=== PATIENT | male | born 1945 | race Caucasian/White ===

== ENCOUNTER → 2017-09-02 | Outpatient (CLI) | payer MEDICARE, BC ==
--- NOTE | 2017-09-02 23:03 | US ---
EXAMINATION TYPE: US thyroid st tissue head/neck DATE OF EXAM: 09/02/2017 COMPARISON: None CLINICAL HISTORY: 72-year-old male E04.1 Thyroid nodule; taking thyroid medication > 10 years TECHNIQUE: Multiple sonographic images of the thyroid gland are obtained. FINDINGS: Right Lobe: 3.4 x 0.9 x 0.9 cm Overall Parenchyma: heterogenous Left Lobe: 3.4 x 1.2 x 1.1 cm Overall Parenchyma: heterogeneous Isthmus Thickness: 0.4 cm NODULES RIGHT: # of nodules measured on right: 1 1. 0.2 X 0.2 x 0.2 cm tiny cyst at the midpole. This nodule is wide as is tall and shows no intrano dular vascularity. LEFT: # of nodules measured on left: 2 1. 1.2 X 1.0 x 0.9 cm isoechoic solid nodule at the upper pole with well-defined margins. This nod ule is wider than tall and shows intranodular vascularity. 2. 0.9 X 0.7 x 0.6 cm isoechoic solid nodule at the lower pole with well-defined margins. This nodu le is wider than tall and shows intranodular vascularity. ISTHMUS: # of nodules measured in the isthmus: 0 Bilateral neck scanned, no evidence of lymphadenopathy. IMPRESSION: 2 dominant solid nodules in the left lobe measuring 1.2 and 0.9 cm. FNA can be considered of the larg er nodule located in the upper pole.
== END | disposition home or self-care (01) ==
LOC: RADUSWWP 15:47
PROVIDERS: ATTEND Family Medicine
DX: E04.2 Nontoxic multinodular goiter (principal)
CPT/HCPCS: 76536

== ENCOUNTER 2018-02-12 08:53 | Day surgery (SDC) | payer MEDICARE, BC ==
[2018-02-07 14:07] VITALS: BMI 28.7
[~2018-02-12 08:53] MED LIST: LACTATED RINGERS 1,000 ML IV SCH
[2018-02-12 09:57] VITALS: RESP 16; TEMP 97.8
[2018-02-12] MEDS ORDERED: LIDOCAINE 1% 20 ML VIAL (10MG/ML) FOR IV START INTRADERMA ONE (09:57)
[2018-02-12 10:01] LABS: Glucose,Whole Blood 102 mg/dL (75-99)
--- NOTE | 2018-02-12 10:07 | P.GSHP ---
History of Present Illness H&P Date: 02/12/18 Chief Complaint: Screening colonoscopy This a 72-year-old male referred from Dr. Marisa Chaney. Patient rents today for screening colonoscopy. He denies a significant GI complaints. Past Medical History Past Medical History: Cancer, Diabetes Mellitus, GERD/Reflux, Hyperlipidemia, Hypertension, Osteoarthritis (OA), Thyroid Disorder Additional Past Medical History / Comment(s): inflammation lower spine, hx skin cancer, nodules in lungs History of Any Multi-Drug Resistant Organisms: None Reported Past Surgical History: Orthopedic Surgery Additional Past Surgical History / Comment(s): skin cancer removed from back, left carpal tunnel, Past Anesthesia/Blood Transfusion Reactions: No Reported Reaction Smoking Status: Never smoker - Past Family History Sister(s) Family Medical History: Cancer Medications and Allergies Home Medications Medication Instructions Recorded Confirmed Type Aspirin 325 mg PO DAILY PRN 02/07/18 02/12/18 History Levothyroxine Sodium [Synthroid] 88 mcg PO DAILY 02/07/18 02/12/18 History Lisinopril [Prinivil] 10 mg PO QAM 02/07/18 02/12/18 History Naproxen Sodium [Aleve] 220 mg PO Q12HR PRN 02/07/18 02/12/18 History Pioglitazone [Actos] 30 mg PO DAILY PRN 02/07/18 02/12/18 History Rosuvastatin [Crestor] 10 mg PO HS 02/07/18 02/12/18 History Ubidecarenone [Co Q-10] 200 mg PO HS 02/07/18 02/12/18 History metFORMIN HCL [Glucophage] 500 mg PO BID 02/07/18 02/12/18 History Allergies Allergy/AdvReac Type Severity Reaction Status Date / Time No Known Allergies Allergy Verified 02/07/18 13:56 Surgical - Exam Vital Signs Temp Pulse Resp BP Pulse Ox 97.8 F 82 16 165/80 98 02/12/18 09:54 02/12/18 09:54 02/12/18 09:54 02/12/18 09:54 02/12/18 09:54 - General well developed, no distress - Eyes PERRL - ENT normal pinna - Neck no masses - Respiratory normal expansion - Cardiovascular Rhythm: regular - Abdomen Abdomen: soft, non tender Results - Labs Abnormal Lab Results - Last 24 Hours (Table) 02/12/18 Range/Units 09:58 POC Glucose (mg/dL) 102 H (75-99) mg/dL Assessment and Plan Assessment: We'll perform screening colonoscopy.
[2018-02-12] MEDS ORDERED: PROPOFOL 10 MG/ML 20 ML VIAL IV ONE (10:10)
--- NOTE | 2018-02-12 10:31 | P.OP ---
Date of Procedure: 02/12/18 Preoperative Diagnosis: Screening colonoscopy Postoperative Diagnosis: Diverticulosis Internal hemorrhoids Procedure(s) Performed: Colonoscopy Anesthesia: MAC Surgeon: Troy Parks Pathology: none sent Condition: stable Disposition: PACU Description of Procedure: The patient's placed on the endoscopy table lateral position. He received IV sedation. Digital rectal exam was performed which revealed internal hemorrhoids. The prostate was symmetric without nodules. The flexible colonoscope was then placed patient anus passed throughout the entire colon. The ileocecal valve was visualized. The cecum, ascending and transverse colon appeared normal. In the descending; was a few scattered diverticuli. Scope was then brought back the rectum and this appeared normal. Scope was withdrawn through the anus and internal hemorrhoids are noted. Scope was withdrawn from patient.
[2018-02-12 10:42] LABS: Glucose,Whole Blood 118 mg/dL (75-99)
[2018-02-12 10:52] VITALS: PULSE 60
[2018-02-12 11:03] VITALS: BP 162/90
== END 2018-02-12 11:16 | disposition home or self-care (01) ==
LOC: ORWHC2ENDO 08:53
PROVIDERS: ATTEND Surgery
DX: Z12.11 Encounter for screening for malignant neoplasm of colon (principal); K57.30 Diverticulosis of large intestine without perforation or abscess without bleeding; K64.8 Other hemorrhoids; E11.9 Type 2 diabetes mellitus without complications; K21.9 Gastro-esophageal reflux disease without esophagitis; I10 Essential (primary) hypertension; E78.5 Hyperlipidemia, unspecified; M19.90 Unspecified osteoarthritis, unspecified site; E07.9 Disorder of thyroid, unspecified; Z85.828 Personal history of other malignant neoplasm of skin; Z79.84 Long term (current) use of oral hypoglycemic drugs; Z79.890 Hormone replacement therapy; Z79.899 Other long term (current) drug therapy
CPT/HCPCS: J2704; G0121; 45378

== ENCOUNTER → 2020-09-02 | Outpatient (CLI) | payer MEDICARE, BC ==
--- NOTE | 2020-09-04 10:00 | ECHOF ---
Referral Reason:R06.09 Dyspnea on exertion MEASUREMENTS -------- HEIGHT: 180.3 cm WEIGHT: 90.7 kg BP: RVIDd: 2.3 cm (< 3.3) IVSd: 1.3 cm (0.6 - 1.1) LVIDd: 3.6 cm (3.9 - 5.3) LVPWd: 1.2 cm (0.6 - 1.1) IVSs: 1.6 cm LVIDs: 1.4 cm LVPWs: 1.6 cm LAESV Index (A-L): 18.53 ml/m Ao Diam: 3.4 cm (2.0 - 3.7) AV Cusp: 2.1 cm (1.5 - 2.6) LA Diam: 4.0 cm (2.7 - 3.8) MV EXCURSION: 12.842 mm (> 18.000) MV EF SLOPE: 73 mm/s (70 - 150) EPSS: 0.8 cm MV E Jamshid: 0.80 m/s MV DecT: 197 ms MV A Jamshid: 0.97 m/s MV E/A Ratio: 0.83 AR PHT: 602 ms RAP: 5.00 mmHg RVSP: 11.16 mmHg FINDINGS -------- This was a technically adequate study. The left ventricular size is normal. There is mild concentric left ventricular hypertrophy. Overa ll left ventricular systolic function is normal with, an EF between 60 - 65 %. The diastolic fillin g pattern is normal for the age of the patient 11.89. The right ventricle is normal in size. The left atrial size is normal. Normal LA size by volume 22+/-6 ml/m2. The right atrial size is normal. Aortic valve is trileaflet and is mildly thickened. Trace amount of aortic regurgitation. The mitral valve is normal. Mild mitral regurgitation is present. The tricuspid valve appears structurally normal. Mild tricuspid regurgitation present. Right vent ricular systolic pressure is normal at < 35 mmHg. There is no pulmonic regurgitation present. The aortic root size is normal. Normal inferior vena cava with normal inspiratory collapse consistent with estimated right atrial pre ssure of 5 mmHg. There is no pericardial effusion. CONCLUSIONS -------- 1. The left ventricular size is normal. 2. There is mild concentric left ventricular hypertrophy. 3. Overall left ventricular systolic function is normal with, an EF between 60 - 65 %. 4. The diastolic filling pattern is normal for the age of the patient 11.89 5. Aortic valve is trileaflet and is mildly thickened. 6. Trace amount of aortic regurgitation. 7. Mild mitral regurgitation is present. 8. Mild tricuspid regurgitation present. 9. There is no pericardial effusion. NUCLEAR PHYSICS TEACHER: Kenzie Mortensen RDCS
== END | disposition home or self-care (01) ==
LOC: RADECHMAIN 13:48
PROVIDERS: ATTEND Internal Medicine Critical Care Medicine
DX: I08.1 Rheumatic disorders of both mitral and tricuspid valves (principal)
CPT/HCPCS: 93306

== ENCOUNTER → 2022-07-03 | Outpatient (CLI) | payer MEDICARE, BC ==
--- NOTE | 2022-07-04 20:48 | MR ---
EXAMINATION TYPE: MR Prostate wo/w con DATE OF EXAM: 07/03/2022 9:41 AM COMPARISON: None. CLINICAL INDICATION:Male, 77 years old with history of R97.20 ELEVATED PROSTATE SPECIFIC ANTIGEN; TECHNIQUE: Multi-planar, multi-sequence imaging of the pelvis is performed prior to and following the uncomplicated administration of bolus intravenous gadolinium. CONTRAST: 9 Gadavist Interpretive Criteria: PI-RADS v2.1 SERUM PSA: 8.4 on 05/29/2022 7.5 on 01/31/2022 SURGICAL PATHOLOGY: No data available. FINDINGS: Prostatic dimensions: 5.3 x 5.5 x 3.2 cm. "Bullet" Volume:61.05 (PSA density=0.14 ng/mL/mL) CENTRAL GLAND (Central and Transition Zones/CZ+TZ): Multiple bilateral, heterogenous appearing hypertrophic stromal nodules, without suspicious lesion. M edian lobe hypertrophy with protrusion into the base of the bladder. (PI-RADS 2) PERIPHERAL ZONE (PZ): Right anterior laterally peripheral gland mid gland/apex measuring 2.4 x 5 mm high DWI and low ADC s ignal . This extends along the capsule extending from 9-12 o'clock (PI-RADS 5) Right peripheral gland apex measuring 7 mm with high DWI and low ADC signal (PI-RADS 4) SEMINAL VESICLES (SV): Diffusely collapse or atrophic, bilaterally. PERIPROSTATIC TISSUES: Unremarkable. LYMPH NODES: No enlarged pelvic lymph node. REMAINING PELVIS: Bladder wall is within normal limits given distention. No abnormal free or organized intrapelvic fluid collection. No pathologic bowel dilation or mural thickening. OSSEOUS STRUCTURES: No suspicious osseous abnormality. IMPRESSION: 1. Right peripheral gland the mid gland and apex measuring 2.4 x 5 mm. (PI-RADS 5) 2. Right peripheral gland apex posterior lateral apex measuring 7 mm. (PI-RADS 4) 3. Moderate BPH, estimated gland volume 61 mL. 4. No suspicious osseous lesion. No lymphadenopathy.
== END | disposition home or self-care (01) ==
LOC: RADMRIMAIN 08:43
PROVIDERS: ATTEND Urology
DX: N40.0 Benign prostatic hyperplasia without lower urinary tract symptoms (principal); R97.20 Elevated prostate specific antigen [PSA]
CPT/HCPCS: 72197; A9585

== ENCOUNTER 2022-08-03 17:19 | Emergency (ER) | payer MEDICARE, BC ==
[2022-08-03 17:26] VITALS: TEMP 98.2
--- NOTE | 2022-08-03 17:50 | ED ---
General Adult HPI - General Chief complaint: Weakness Stated complaint: Weakness Time Seen by Provider: 08/03/22 17:36 Source: patient Mode of arrival: ambulatory Limitations: no limitations - History of Present Illness Initial comments: Dictation was produced using [employer] dictation software. please excuse any grammatical, word or spelling errors. Chief Complaint: 77-year-old male past medical history of diabetes and thyroid disease presents to the emergency room for episode of dizziness and diaphoresis History of Present Illness: 77-year-old male he woke up in the middle the night 2 nights ago. He woke up feeling a little dizzy. Shortly after he had some diaphoresis. Says short-lived lasted only for approximately 1 minute. Since that he's been feeling mildly fatigued more than usual. A phone conversation with his primary care physician's office and was told to come to the emergency room. At the bedside patient states that he feels slightly fatigued but has no other complaints. Denies any cardiac history. No chest pain. No syncope. No diarrhea. No urinary symptoms. The ROS documented in this emergency department record has been reviewed and confirmed by me. Those systems with pertinent positive or negative responses have been documented in the HPI. All other systems are other negative and/or noncontributory. PHYSICAL EXAM: General Impression: Alert and oriented x3, not in acute distress HEENT: Normocephalic atraumatic, extra-ocular movements intact, pupils equal and reactive to light bilaterally, mucous membranes moist. Cardiovascular: Heart regular rate and rhythm Chest: Able to complete full sentences, no retractions, no tachypnea Abdomen: abdomen soft, non-tender, non-distended, no organomegaly Musculoskeletal: Pulses present and equal in all extremities, no peripheral edema Motor: no focal deficits noted Neurological: CN II-XII grossly intact, no focal motor or sensory deficits noted Skin: Intact with no visualized rashes Psych: Normal affect and mood ED course: 77-year-old well-appearing male presents emergency department for episode of dizziness and diaphoresis 2 nights ago. Vital signs upon arrival are within acceptable limits. Nursing notes and chart review was performed EKG interpreted by me: Ventricular rate 79, sinus rhythm,. 195, QRS 95, QTC 370. No WA prolongation, no QTC prolongation, no ST or T-wave changes noted. Overall, this EKG is unremarkable Laboratory evaluation obtained. CBC, metabolic panel, labs are negative. For panel are a PCR is negative. Patient observed in emergency department for 2 hours and 10 minutes. Reevaluated at 7:30 PM on a stable medical condition. Patient is a symptomatically feels at baseline. Patient has no high-risk features. Patient discharged advised follow-up with primary care doctor. Was pt. sent in by a medical professional or institution (, PA, FUNERAL PLANNING COUNSELOR, urgent care, hospital, or correction...) When possible be specific @ -No Did you speak to anyone other than the patient for history (EMS, parent, family, police, friend...)? What history was obtained from this source @ -No Did you review nursing and triage notes (agree or disagree)? Why? @ -I reviewed and agree with nursing and triage notes Were old charts reviewed (outside hosp., previous admission, EMS record, old EKG, old radiological studies, urgent care reports/EKG's, correction records)? Report findings @ -No old charts were reviewed Differential Diagnosis (chest pain, altered mental status, abdominal pain women, abdominal pain men, vaginal bleeding, weakness, fever, dyspnea, syncope, headache, dizziness, GI bleed, back pain, seizure, CVA, palpatations, mental health)? @ -Differential Dizziness: Benign paroxysmal positional Vertigo, Menieres disease, otitis media, acoustic neuroma, vertebrobasilar insufficiency, cerebellar stroke, encephalitis, hypovolemic, arrhythmia, coronary artery syndrome, anemia, this is not meant to be an all-inclusive list EKG interpreted by me (3pts min.). @ -As above X-rays interpreted by me (1pt min.). @ -None done CT interpreted by me (1pt min.). @ -None done U/S interpreted by me (1pt. min.). @ -None done What testing was considered but not performed or refused? (CT, X-rays, U/S, labs)? Why? @ -See above What meds were considered but not given or refused? Why? @ -See above Did you discuss the management of the patient with other professionals (professionals i.e. , ADRIANNE, FUNERAL PLANNING COUNSELOR, lab, RT, psych nurse, sexual assault social worker, inseminator, teacher, chief innovation officer, nurse case manager)? Give summary @ -See above Was smoking cessation discussed for >3mins.? @ -No Was critical care preformed (if so, how long)? @ -No Were there social determinants of health that impacted care today? How? (Homelessness, low income, unemployed, alcoholism, drug addiction, transportation, low edu. Level, literacy, decrease access to med. care, custodial, rehab)? @ -No Was there de-escalation of care discussed even if they declined (Discuss DNR or withdrawal of care, Hospice)? DNR status @ -No What co-morbidities impacted this encounter? (DM, HTN, Smoking, COPD, CAD, Cancer, CVA, ARF, Chemo, Hep., AIDS, mental health diagnosis, sleep apnea, morbid obesity)? @ -None Was patient admitted / discharged? Hospital course, mention meds given and rou te, prescriptions, significant lab abnormalities, going to OR and other pertinent info. @ -See above Undiagnosed new problem with uncertain prognosis? @ -No Drug Therapy requiring intensive monitoring for toxicity (Heparin, Nitro, Insulin, Cardizem)? @ -No Were any procedures done? @ -No Diagnosis/symptom? @ -Acute episode of dizziness and diaphoresis, no obvious source Acute, or Chronic, or Acute on Chronic? @ -Acute Uncomplicated (without systemic symptoms) or Complicated (systemic symptoms)? @ -Uncomplicated Side effects of treatment? @ -No Exacerbation, Progression, or Severe Exacerbation? @ -No Poses a threat to life or bodily function? How? (Chest pain, [place], [place], pneumonia, PE, COPD, DKA, ARF, appy, cholecystitis, CVA, Diverticulitis, Homicidal, Suicidal, threat to staff... and all critical care pts) @ -No - Related Data Home Medications Medication Instructions Recorded Confirmed Aspirin 325 mg PO DAILY PRN 02/07/18 02/12/18 Levothyroxine Sodium [Synthroid] 88 mcg PO DAILY 02/07/18 02/12/18 Naproxen Sodium [Aleve] 220 mg PO Q12HR PRN 02/07/18 02/12/18 Pioglitazone [Actos] 30 mg PO DAILY PRN 02/07/18 02/12/18 Rosuvastatin [Crestor] 10 mg PO HS 02/07/18 02/12/18 Ubidecarenone [Co Q-10] 200 mg PO HS 07/27/18 08/01/18 lisinopriL [Prinivil] 10 mg PO QAM 02/07/18 02/12/18 metFORMIN HCL [Glucophage] 500 mg PO BID 02/07/18 02/12/18 Allergies Allergy/AdvReac Type Severity Reaction Status Date / Time No Known Allergies Allergy Verified 08/03/22 17:26 Review of Systems ROS Statement: Those systems with pertinent positive or pertinent negative responses have been documented in the HPI. ROS Other: All systems not noted in ROS Statement are negative. Past Medical History Past Medical History: Cancer, Diabetes Mellitus, GERD/Reflux, Hyperlipidemia, Hypertension, Osteoarthritis (OA), Thyroid Disorder Additional Past Medical History / Comment(s): inflammation lower spine, hx skin cancer, nodules in lungs History of Any Multi-Drug Resistant Organisms: None Reported Past Surgical History: Orthopedic Surgery Additional Past Surgical History / Comment(s): skin cancer removed from back, left carpal tunnel, Past Anesthesia/Blood Transfusion Reactions: No Reported Reaction Past Psychological History: No Psychological Hx Reported Smoking Status: Never smoker Past Alcohol Use History: Occasional Past Drug Use History: None Reported - Past Family History Sister(s) Family Medical History: Cancer General Exam Limitations: no limitations Course Vital Signs 08/03/22 17:24 Temperature 98.2 F Pulse Rate 83 Respiratory 20 Rate Blood Pressure 135/85 O2 Sat by Pulse 98 Oximetry Medical Decision Making - Lab Data Result diagrams: 08/03/22 17:58 08/03/22 17:58 Lab Results 08/03/22 08/03/22 08/03/22 Range/Units 17:58 17:58 17:58 WBC 7.0 (3.8-10.6) k/uL RBC 5.03 (4.30-5.90) m/uL Hgb 15.3 (13.0-17.5) gm/dL Hct 45.5 (39.0-53.0) % MCV 90.4 (80.0-100.0) fL MCH 30.4 (25.0-35.0) pg MCHC 33.7 (31.0-37.0) g/dL RDW 12.6 (11.5-15.5) % Plt Count 226 (150-450) k/uL MPV 8.0 Neutrophils % 58 % Lymphocytes % 22 % Monocytes % 6 % Eosinophils % 11 % Basophils % 1 % Neutrophils # 4.1 (1.3-7.7) k/uL Lymphocytes # 1.5 (1.0-4.8) k/uL Monocytes # 0.4 (0-1.0) k/uL Eosinophils # 0.7 (0-0.7) k/uL Basophils # 0.1 (0-0.2) k/uL Sodium 136 L (137-145) mmol/L Potassium 4.3 (3.5-5.1) mmol/L Chloride 103 (98-107) mmol/L Carbon Dioxide 26 (22-30) mmol/L Anion Gap 7 mmol/L BUN 14 (9-20) mg/dL Creatinine 0.96 (0.66-1.25) mg/dL Est GFR (CKD-EPI)AfAm 88 (>60 ml/min/1.73 sqM) Est GFR (CKD-EPI)NonAf 77 (>60 ml/min/1.73 sqM) Glucose 124 H (74-99) mg/dL Calcium 9.3 (8.4-10.2) mg/dL Magnesium 1.6 (1.6-2.3) mg/dL Total Bilirubin 0.7 (0.2-1.3) mg/dL AST 24 (17-59) U/L ALT 21 (4-49) U/L Alkaline Phosphatase 61 (38-126) U/L Troponin I (0.000-0.034) ng/mL Total Protein 6.3 (6.3-8.2) g/dL Albumin 4.0 (3.5-5.0) g/dL TSH 3.000 (0.465-4.680) mIU/L Influenza Type A (PCR) Not Detected (Not Detectd) Influenza Type B (PCR) Not Detected (Not Detectd) RSV (PCR) Not Detected (Not Detectd) SARS-CoV-2 (PCR) Not Detected (Not Detectd) 08/03/22 Range/Units 17:58 WBC (3.8-10.6) k/uL RBC (4.30-5.90) m/uL Hgb (13.0-17.5) gm/dL Hct (39.0-53.0) % MCV (80.0-100.0) fL MCH (25.0-35.0) pg MCHC (31.0-37.0) g/dL RDW (11.5-15.5) % Plt Count (150-450) k/uL MPV Neutrophils % % Lymphocytes % % Monocytes % % Eosinophils % % Basophils % % Neutrophils # (1.3-7.7) k/uL Lymphocytes # (1.0-4.8) k/uL Monocytes # (0-1.0) k/uL Eosinophils # (0-0.7) k/uL Basophils # (0-0.2) k/uL Sodium (137-145) mmol/L Potassium (3.5-5.1) mmol/L Chloride (98-107) mmol/L Carbon Dioxide (22-30) mmol/L Anion Gap mmol/L BUN (9-20) mg/dL Creatinine (0.66-1.25) mg/dL Est GFR (CKD-EPI)AfAm (>60 ml/min/1.73 sqM) Est GFR (CKD-EPI)NonAf (>60 ml/min/1.73 sqM) Glucose (74-99) mg/dL Calcium (8.4-10.2) mg/dL Magnesium (1.6-2.3) mg/dL Total Bilirubin (0.2-1.3) mg/dL AST (17-59) U/L ALT (4-49) U/L Alkaline Phosphatase (38-126) U/L Troponin I <0.012 (0.000-0.034) ng/mL Total Protein (6.3-8.2) g/dL Albumin (3.5-5.0) g/dL TSH (0.465-4.680) mIU/L Influenza Type A (PCR) (Not Detectd) Influenza Type B (PCR) (Not Detectd) RSV (PCR) (Not Detectd) SARS-CoV-2 (PCR) (Not Detectd) Disposition Clinical Impression: Dizziness Disposition: HOME SELF-CARE Condition: Good Instructions (If sedation given, give patient instructions): Dizziness (ED) Is patient prescribed a controlled substance at d/c from ED?: No Referrals: Marisa Chaeny DO [Primary Care Provider] - 1-2 days Time of Disposition: 19:32
[2022-08-03 18:07] LABS: Basophils # (A) 0.1 k/uL (0-0.2); Basophils % (A) 1 %; Eosinophils # (A) 0.7 k/uL (0-0.7); Eosinophils % (A) 11 %; HCT 45.5 % (39.0-53.0); HGB 15.3 gm/dL (13.0-17.5); Lymphocytes # (A) 1.5 k/uL (1.0-4.8); Lymphocytes % (A) 22 %; MCH 30.4 pg (25.0-35.0); MCHC 33.7 g/dL (31.0-37.0); MCV 90.4 fL (80.0-100.0); Monocytes # (A) 0.4 k/uL (0-1.0); Monocytes % (A) 6 %; Neutrophils # (A) 4.1 k/uL (1.3-7.7); Neutrophils % (A) 58 %; Platelet Count 226 k/uL (150-450); RBC 5.03 m/uL (4.30-5.90); RDW 12.6 % (11.5-15.5)
[2022-08-03 18:18] LABS: Calcium 9.3 mg/dL (8.4-10.2); Magnesium 1.6 mg/dL (1.6-2.3); Potassium 4.3 mmol/L (3.5-5.1); Total Bilirubin 0.7 mg/dL (0.2-1.3); Total Protein 6.3 g/dL (6.3-8.2)
[2022-08-03 20:32] VITALS: BP 150/97; PULSE 72; RESP 16
== END 2022-08-03 20:25 | disposition home or self-care (01) ==
LOC: EC 17:19
DX: R42 Dizziness and giddiness (principal); E11.9 Type 2 diabetes mellitus without complications; E07.9 Disorder of thyroid, unspecified; E78.5 Hyperlipidemia, unspecified; I10 Essential (primary) hypertension; K21.9 Gastro-esophageal reflux disease without esophagitis; M19.90 Unspecified osteoarthritis, unspecified site; Z79.84 Long term (current) use of oral hypoglycemic drugs; Z79.890 Hormone replacement therapy; Z79.899 Other long term (current) drug therapy; Z20.822 Contact with and (suspected) exposure to COVID-19
CPT/HCPCS: 36415; 80053; 83735; 84443; 84484; 85025; 87636; 93005; 99285

== ENCOUNTER → 2022-09-26 | Outpatient (CLI) | payer MEDICARE, BC ==
[2022-09-26 23:27] LABS: Basophils # (A) 0.06 X 10*3/uL (0.00-0.10); Basophils % (A) 0.8 %; Eosinophils # (A) 0.09 X 10*3/uL (0.04-0.35); Eosinophils % (A) 1.2 %; HCT 47.3 % (39.6-50.0); HGB 15.3 g/dL (13.0-17.0); Immature Grans, Automated 0.5 %; Lymphocytes # (A) 1.38 X 10*3/uL (0.90-5.00); Lymphocytes % (A) 18.4 %; MCH 30.8 pg (27.0-32.0); MCHC 32.3 g/dL (32.0-37.0); MCV 95.2 fL (80.0-97.0); Mean Platelet Volume 10.4 fL (9.5-12.2); Monocytes # (A) 0.59 X 10*3/uL (0.20-1.00); Monocytes % (A) 7.9 %; NRBC Per 100 WBC 0 /100 WBCS (0.0-0.0); Neutrophils # (A) 5.34 X 10*3/uL (1.80-7.70); Neutrophils % (A) 71.2 %; Platelet Count 289 X 10*3/uL (140-440); RBC 4.97 X 10*6/uL (4.40-5.60); RDW 12.8 % (11.5-14.5)
[2022-09-26 23:31] LABS: African American GFR (CKD) 83.8 (60.0-200.0); Anion Gap 11.2 mmol/L (10.00-18.00); BUN/Creat Ratio 18.2 Ratio (12.00-20.00); Blood Urea Nitrogen 18.2 mg/dL (9.0-27.0); Calcium 9.4 mg/dL (8.7-10.3); Carbon Dioxide 25.8 mmol/L (20.0-27.5); Non-African American GFR(CKD) 72.3 (60.0-200.0); Potassium 4.7 mmol/L (3.5-5.5)
== END | disposition home or self-care (01) ==
LOC: LABWHC1 15:05
PROVIDERS: ATTEND Urology
DX: Z01.812 Encounter for preprocedural laboratory examination (principal); R97.20 Elevated prostate specific antigen [PSA]
CPT/HCPCS: 36415; 80048; 85025

== ENCOUNTER 2022-10-02 11:23 | Day surgery (SDC) | payer MEDICARE, BC ==
--- NOTE | 2022-09-28 16:14 | P.HPIHPCON ---
History of Present Illness H&P Date: 09/28/22 Chief Complaint: Elevated PSA This is a 77-year-old male with history of elevated PSA. Underwent a prostate that showed 2 suspicious lesions along right side of the prostate. Discussed given this finding the option of an MRI fusion biopsy. Discussed the risk of bleeding, infection, sepsis. Risk of false negative was also discussed with him Consent for Procedure: I have explained the operation/procedure to the patient, including the risks, b enefits, side effects, alternative therapies (including not receiving the proposed treatment or service), the likelihood of the patient achieving his/her goals, and potential recuperation problems for the procedure/sedation/analgesia, as well as any blood products, if indicated. I also explained to the patient the risks, benefits and side effects of the alternatives, as well as the risks related to not receiving the proposed procedure, care, treatment, or services. Past Medical History Past Medical History: Cancer, Diabetes Mellitus, GERD/Reflux, Hyperlipidemia, Hypertension, Osteoarthritis (OA), Thyroid Disorder Additional Past Medical History / Comment(s): inflammation lower spine, hx skin cancer, nodules in lungs History of Any Multi-Drug Resistant Organisms: None Reported Past Surgical History: Orthopedic Surgery Additional Past Surgical History / Comment(s): skin cancer removed from back, left carpal tunnel, Past Anesthesia/Blood Transfusion Reactions: No Reported Reaction Past Psychological History: No Psychological Hx Reported Smoking Status: Never smoker Past Alcohol Use History: Occasional Past Drug Use History: None Reported - Past Family History Sister(s) Family Medical History: Cancer Medications and Allergies Home Medications Medication Instructions Recorded Confirmed Type Levothyroxine Sodium [Synthroid] 88 mcg PO DAILY 02/07/18 08/03/22 History Naproxen Sodium [Aleve] 220 mg PO HS 02/07/18 08/03/22 History Rosuvastatin [Crestor] 10 mg PO HS 02/07/18 08/03/22 History Ubidecarenone [Co Q-10] 200 mg PO DAILY 02/07/18 08/03/22 History lisinopriL [Prinivil] 10 mg PO HS 02/07/18 08/03/22 History metFORMIN HCL [Glucophage] 500 mg PO BID 02/07/18 08/03/22 History Cetirizine HCl/Pseudoephedrine 1 tab PO HS 08/03/22 08/03/22 History [Zyrtec-D Tablet] Omeprazole [PriLOSEC] 20 mg PO DAILY 08/03/22 08/03/22 History Semaglutide [Rybelsus] 7 mg PO DAILY 08/03/22 08/03/22 History Allergies Allergy/AdvReac Type Severity Reaction Status Date / Time No Known Allergies Allergy Verified 08/03/22 19:31 Surgical - Exam - General no distress, no pain - Eyes normal ocular movement, no pale - ENT normal nares, normal mucosa Assessment and Plan Assessment: OR for MRI fusion biopsy
[~2022-10-02 11:23] MED LIST changes: +GENTAMICIN 120 MG in SODIUM CHLORIDE 0.9% 100 ML IVPB PRN; +HYDROmorphone 0.5 MG/0.5 ML SYRINGE IVP PRN
[2022-10-02] MEDS ORDERED: ONDANSETRON 4 MG/2 ML VIAL ONE (11:51)
[2022-10-02 12:05] VITALS: TEMP 97.2
[2022-10-02] MEDS ORDERED: KETAMINE 10 MG/ML 20 ML VIAL ONE (12:17)
[2022-10-02] MEDS ORDERED: LIDOCAINE 2% INJ 20 MG/ML (2 ML VIAL) ONE (12:17)
[2022-10-02] MEDS ORDERED: MIDAZOLAM 2 MG/2 ML VIAL ONE (12:17)
[2022-10-02] MEDS ORDERED: fentaNYL (PF) 50 MCG/ML 2 ML AMP ONE (12:17)
[2022-10-02] MEDS ORDERED: PROPOFOL 10 MG/ML 20 ML VIAL IV ONE (12:17)
[2022-10-02] MEDS ORDERED: ONDANSETRON 4 MG/2 ML VIAL IVP ONE (12:18)
[2022-10-02] MEDS ORDERED: DEXAMETHASONE SOD PHOSPHATE 4 MG/ML 1 ML VIAL IVP ONE (12:18)
[2022-10-02 12:22] LABS: Glucose,Whole Blood 125 mg/dL (70-110)
--- NOTE | 2022-10-02 12:55 | P.OP ---
Date of Procedure: 10/02/22 Preoperative Diagnosis: Elevated PSA Postoperative Diagnosis: Same Procedure(s) Performed: MRI fusion prostate biopsy Implants: none Anesthesia: MAC Surgeon: Feliz Carrington Estimated Blood Loss (ml): 1 Pathology: other (prostate biopsies) Condition: stable Disposition: PACU Indications for Procedure: This is a 77-year-old male with history of elevated PSA. Underwent a prostate that showed 2 suspicious lesions along right side of the prostate. Discussed given this finding the option of an MRI fusion biopsy. Discussed the risk of bleeding, infection, sepsis. Risk of false negative was also discussed with him Description of Procedure: The patient was taken to the operating room and placed in the left lateral decubitus position. The [employer] transrectal ultrasound probe was placed intrarectally. It was then placed within the stand of the [employer] MRI/TRUS Fusion for Prostate Biopsy system. The prostate was imaged in both the axial and sagittal planes, revealing a prostate volume of 60 mL. Using the Biopty gun, 4 biopsies were obtained from each target lesions, there were two total lesion. The remaining 12 biopsies of the peripheral zone were obtained utilizing a standard template. Once the procedure was completed, the ultrasound probe was removed. The patient tolerated the procedure well was taken to the recovery room stable condition
[2022-10-02 13:34] VITALS: BP 106/70; PULSE 73; RESP 16
== END 2022-10-02 13:49 | disposition home or self-care (01) ==
LOC: OR 11:23
PROVIDERS: ATTEND Urology
DX: R97.20 Elevated prostate specific antigen [PSA] (principal)
CPT/HCPCS: 55700; J2250; J1100; J2405; J3010; J1580; J2704; J2001; 88305

== ENCOUNTER → 2022-12-24 | Outpatient (CLI) | payer MEDICARE, BC | END | disposition home or self-care (01) | LOC: LABPAT 10:28 | PROVIDERS: ATTEND Urology | DX: Z01.812 Encounter for preprocedural laboratory examination (principal); C61 Malignant neoplasm of prostate | CPT/HCPCS: 87086 ==

== ENCOUNTER → 2023-01-01 | Day surgery (SDC) | payer MEDICARE, BC ==
[2022-12-24 12:25] LABS: Basophils % (A) 1 %; Eosinophils # (A) 0.1 k/uL (0-0.7); Eosinophils % (A) 2 %; HGB 16.4 gm/dL (13.0-17.5); Lymphocytes % (A) 21 %; MCHC 32.1 g/dL (31.0-37.0); MCV 93.5 fL (80.0-100.0); Mean Platelet Volume 8.7; Monocytes # (A) 0.3 k/uL (0-1.0); Monocytes % (A) 6 %; Neutrophils # (A) 3.2 k/uL (1.3-7.7); Neutrophils % (A) 68 %; Platelet Count 209 k/uL (150-450); RBC 5.45 m/uL (4.30-5.90); RDW 13.1 % (11.5-15.5); WBC 4.7 k/uL (3.8-10.6)
[2022-12-24 12:36] LABS: Appearance,Urine Clear (Clear); Bilirubin,Urine Negative (Negative); Blood,Urine Negative (Negative); Color,Urine Light Yellow; Glucose,Urine (UA) 4+ (Negative); Ketones,Urine Negative (Negative); Leukocyte Esterase,Urine Negative (Negative); Nitrite,Urine Negative (Negative); PH, Urine 6.5 (5.0-8.0); Protein,Urine Negative (Negative); Urobilinogen,Urine <2.0 mg/dL (<2.0)
[2022-12-24 12:38] LABS: African American GFR (CKD) >90 (>60 ml/min/1.73 sqM); Anion Gap 8 mmol/L; Blood Urea Nitrogen 12 mg/dL (9-20); Calcium 8.9 mg/dL (8.4-10.2); Carbon Dioxide 26 mmol/L (22-30); Chloride 103 mmol/L (98-107); Glucose 104 mg/dL (74-99); Non-African American GFR(CKD) 82 (>60 ml/min/1.73 sqM); Potassium 4.8 mmol/L (3.5-5.1); Sodium 137 mmol/L (137-145)
[2022-12-28 10:36] VITALS: BMI 25.8
[~2023-01-01] MED LIST changes: +DEXAMETHASONE SOD PHOSPHATE 4 MG/ML 1 ML VIAL IVP ONE; -GENTAMICIN 120 MG in SODIUM CHLORIDE 0.9% 100 ML IVPB PRN; -HYDROmorphone 0.5 MG/0.5 ML SYRINGE IVP PRN; +KETAMINE 10 MG/ML 20 ML VIAL ONE; +LIDOCAINE 2% (PF) 20 MG/ML 10 ML AMP SQ ONE; +MIDAZOLAM 2 MG/2 ML VIAL ONE; +ONDANSETRON 4 MG/2 ML VIAL ONE; +PROPOFOL 10 MG/ML 20 ML VIAL IV ONE; +fentaNYL (PF) 50 MCG/ML 2 ML AMP ONE
--- NOTE | 2023-01-01 12:40 | P.HPIHPCON ---
History of Present Illness H&P Date: 01/01/23 Chief Complaint: prostate cancer This is a 77-year-old male with history of [place] 7 prostate cancer. He agreed to proceed with radiation therapy. Option of a SpaceOR placement was discussed with him. Discussed with him risk of bleeding, infection, and the rationale of doing this. Discussed with him the purpose of to reduce the rectal toxicity. Discussed potential of still developing radiation proctitis even with SpaceOR . He understood all the risk and agreed to proceed Consent for Procedure: I have explained the operation/procedure to the patient, including the risks, benefits, side effects, alternative therapies (including not receiving the proposed treatment or service), the likelihood of the patient achieving his/her goals, and potential recuperation problems for the procedure/sedation/analgesia, as well as any blood products, if indicated. I also explained to the patient the risks, benefits and side effects of the alternatives, as well as the risks related to not receiving the proposed procedure, care, treatment, or services. Past Medical History Past Medical History: Cancer, Diabetes Mellitus, GERD/Reflux, Hyperlipidemia, Hypertension, Osteoarthritis (OA), Prostate Disorder, Thyroid Disorder Additional Past Medical History / Comment(s): inflammation lower spine, hx skin cancer, nodules in lungs, prostate cancer History of Any Multi-Drug Resistant Organisms: None Reported Past Surgical History: Orthopedic Surgery Additional Past Surgical History / Comment(s): skin cancer removed from back, left carpal tunnel Past Anesthesia/Blood Transfusion Reactions: No Reported Reaction Past Psychological History: No Psychological Hx Reported Smoking Status: Never smoker Past Alcohol Use History: None Reported Past Drug Use History: None Reported - Past Family History Sister(s) Family Medical History: Cancer Medications and Allergies Home Medications Medication Instructions Recorded Confirmed Type Levothyroxine Sodium [Synthroid] 88 mcg PO QAM 02/07/18 12/28/22 History Rosuvastatin [Crestor] 10 mg PO HS 02/07/18 12/28/22 History lisinopriL [Prinivil] 10 mg PO HS 02/07/18 12/28/22 History metFORMIN HCL [Glucophage] 500 mg PO BID 02/07/18 12/28/22 History Empagliflozin [Jardiance] 25 mg PO QAM 10/01/22 12/28/22 History Tamsulosin [Flomax] 0.4 mg PO 12/28/22 12/28/22 History Allergies Allergy/AdvReac Type Severity Reaction Status Date / Time No Known Allergies Allergy Verified 12/28/22 10:25 Surgical - Exam - General no distress, no pain - Eyes normal ocular movement, no pale - ENT normal nares, normal mucosa - Respiratory normal expansion, normal respiratory effort - Abdomen Abdomen: soft, non tender - Psychiatric oriented to time, oriented to person, oriented to place Results - Labs 12/24/22 11:36 12/24/22 11:36 Assessment and Plan Assessment: OR for SpaceOR placement
[2023-01-01 13:16] LABS: Glucose,Whole Blood 114 mg/dL (70-110)
[2023-01-01 15:40] VITALS: TEMP 97.6
--- NOTE | 2023-01-01 15:48 | P.OP ---
Date of Procedure: 01/01/23 Preoperative Diagnosis: Prostate cancer Postoperative Diagnosis: Same Procedure(s) Performed: Transrectal ultrasound, SpaceOR placement, Implants: SpaceOR gel Anesthesia: MAC Surgeon: Feliz Carrington Estimated Blood Loss (ml): 1 Pathology: none sent Condition: stable Disposition: PACU Indications for Procedure: This is a 77-year-old male with history of [place] 7 prostate cancer. He agreed to proceed with radiation therapy. Option of a SpaceOR placement was discussed with him. Discussed with him risk of bleeding, infection, and the rationale of doing this. Discussed with him the purpose of to reduce the rectal toxicity. Discussed potential of still developing radiation proctitis even with SpaceOR . He understood all the risk and agreed to proceed Description of Procedure: The patient was taken to the operating room and placed in the dorsolithotomy position, with his legs supported in Andrew stirrups. The external genitalia was prepped and draped sterilely. The transrectal ultrasound probe was placed intrarectally. The prostate was imaged. The probe was then placed within the stabilizing stand. A spinal needle was advanced under ultrasonic guidance to the level of the urogenital diaphragm, and lidocaine was used to infiltrate the tissues as the needle was withdrawn. Next, the SpaceOAR needle was passed through the midline of the perineum, 1-2 cm anterior to the anal opening. The needle was slowly advanced under ultrasonic guidance until the needle tip was located within the fat plane between the prostate and rectum, at the level of the mid prostate gland. The needle was confirmed to be midline on the axial imaging. A small amount of normal saline was injected for hydrodissection. Next, the SpaceOAR components were mixed and loaded into the Y connector per protocol. The Y connector was then connected to the needle, and the components were injected slowly over a course of approximately 10 seconds. A total of 8 ml was injected. Significant distance was created between the prostate and rectum, as desired. It should be noted that at no point was there any concern of rectal perforation. The needle was withdrawn, as well as the transrectal ultrasound probe, and the procedure was terminated. The patient tolerated the procedure well and was taken to the recovery room in stable condition
[2023-01-01 16:05] VITALS: RESP 16
[2023-01-01 16:24] VITALS: BP 131/78; PULSE 54
== END | disposition home or self-care (01) ==
LOC: OR 12:50
PROVIDERS: ATTEND Urology
DX: C61 Malignant neoplasm of prostate (principal); E11.9 Type 2 diabetes mellitus without complications; K21.9 Gastro-esophageal reflux disease without esophagitis; E78.5 Hyperlipidemia, unspecified; I10 Essential (primary) hypertension; M19.90 Unspecified osteoarthritis, unspecified site; E07.9 Disorder of thyroid, unspecified; Z98.890 Other specified postprocedural states; Z79.899 Other long term (current) drug therapy
CPT/HCPCS: 55874; C1889; J2250; J1100; J2001; J0690; J2405; J3010; J2704; 80048; 81003; 85025

== ENCOUNTER → 2023-01-22 | Outpatient (CLI) | payer MEDICARE, BC | END | disposition home or self-care (01) | LOC: LABWHC1 10:35 | PROVIDERS: ATTEND Radiology Radiation Oncology | DX: C61 Malignant neoplasm of prostate (principal); Z85.828 Personal history of other malignant neoplasm of skin | CPT/HCPCS: 36415; 84153 ==

== ENCOUNTER → 2023-04-25 | Outpatient (CLI) | payer MEDICARE, BC | END | disposition home or self-care (01) | LOC: LABWHC1 14:39 | PROVIDERS: ATTEND Radiology Radiation Oncology | DX: C61 Malignant neoplasm of prostate (principal); Z85.828 Personal history of other malignant neoplasm of skin | CPT/HCPCS: 36415; 84153 ==

== ENCOUNTER → 2023-07-02 | Outpatient (CLI) | payer MEDICARE, BC | END | disposition home or self-care (01) | LOC: LABWHC1 14:39 | PROVIDERS: ATTEND Radiology Radiation Oncology | DX: C61 Malignant neoplasm of prostate (principal); Z85.828 Personal history of other malignant neoplasm of skin | CPT/HCPCS: 36415; 84153 ==

== ENCOUNTER → 2023-10-07 | Outpatient (CLI) | payer MEDICARE, BC | END | disposition home or self-care (01) | LOC: LABWHC1 14:45 | PROVIDERS: ATTEND Radiology Radiation Oncology | DX: C61 Malignant neoplasm of prostate (principal); Z85.828 Personal history of other malignant neoplasm of skin | CPT/HCPCS: 36415; 84153 ==

== ENCOUNTER 2024-02-27 22:52 | Inpatient (IN) | payer MEDICARE, BC ==
[~2024-02-27 22:52] MED LIST changes: -DEXAMETHASONE SOD PHOSPHATE 4 MG/ML 1 ML VIAL IVP ONE; -KETAMINE 10 MG/ML 20 ML VIAL ONE; -LACTATED RINGERS 1,000 ML IV SCH; +LEVOTHYROXINE 88 MCG TAB ONE; -LIDOCAINE 2% (PF) 20 MG/ML 10 ML AMP SQ ONE; -MIDAZOLAM 2 MG/2 ML VIAL ONE; +MORPHINE SULFATE 4 MG/ML SYRINGE ONE; +PANTOPRAZOLE 40 MG/10 ML VIAL ONE; +PIPERACILLIN-TAZOBACTAM 3.375 GM VIAL ONE; -PROPOFOL 10 MG/ML 20 ML VIAL IV ONE; +SODIUM CHLORIDE 0.9% 1,000 ML BAG ONE; +TAMSULOSIN 0.4 MG CAP.ER.24H PO ONE; -fentaNYL (PF) 50 MCG/ML 2 ML AMP ONE; +lisinopriL 20 MG TAB ONE
[2024-02-27] MEDS ORDERED: SODIUM CHLORIDE 0.9% 1,000 ML BAG ONE (23:59)
[2024-02-27] MEDS ORDERED: SODIUM CHLORIDE 0.9% 100 ML BAG ONE (23:59)
[2024-02-28] MEDS ORDERED: ATORVASTATIN 20 MG TAB ONE ×2 (00:18→19:55)
[2024-02-28] MEDS ORDERED: LEVOTHYROXINE 88 MCG TAB ONE (05:58)
[2024-02-28] MEDS ORDERED: PANTOPRAZOLE 40 MG/10 ML VIAL ONE (07:45)
[2024-02-28] MEDS ORDERED: lisinopriL 20 MG TAB ONE (07:45)
[2024-02-28] MEDS ORDERED: PIPERACILLIN-TAZOBACTAM 3.375 GM VIAL ONE ×3 (07:58→19:55)
[2024-02-28] MEDS ORDERED: TAMSULOSIN 0.4 MG CAP.ER.24H PO ONE (19:54)
[2024-02-28] MEDS ORDERED: MORPHINE SULFATE 4 MG/ML SYRINGE ONE (20:01)
[2024-02-28] MEDS ORDERED: SODIUM CHLORIDE 0.9% 100 ML BAG ONE (23:59)
[2024-02-28] MEDS ORDERED: SODIUM CHLORIDE 0.9% 1,000 ML BAG ONE (23:59)
[2024-02-29] MEDS ORDERED: PIPERACILLIN-TAZOBACTAM 3.375 GM VIAL ONE ×3 (06:40→21:02)
[2024-02-29] MEDS ORDERED: LEVOTHYROXINE 88 MCG TAB ONE (06:40)
[2024-02-29] MEDS ORDERED: lisinopriL 20 MG TAB ONE (08:10)
[2024-02-29] MEDS ORDERED: PANTOPRAZOLE 40 MG/10 ML VIAL ONE (08:10)
[2024-02-29] MEDS ORDERED: LIDOCAINE 4% PATCH TOPICAL ONE (13:03)
[2024-02-29] MEDS ORDERED: TAMSULOSIN 0.4 MG CAP.ER.24H PO ONE (21:02)
[2024-02-29] MEDS ORDERED: ATORVASTATIN 20 MG TAB ONE (21:02)
[2024-02-29] MEDS ORDERED: SODIUM CHLORIDE 0.9% 100 ML BAG ONE (23:59)
[2024-02-29] MEDS ORDERED: SODIUM CHLORIDE 0.9% 1,000 ML BAG ONE (23:59)
[2024-03-01] MEDS ORDERED: PIPERACILLIN-TAZOBACTAM 3.375 GM VIAL ONE ×3 (06:36→23:47)
[2024-03-01] MEDS ORDERED: PANTOPRAZOLE 40 MG/10 ML VIAL ONE (09:11)
[2024-03-01] MEDS ORDERED: LEVOTHYROXINE 88 MCG TAB ONE (09:11)
[2024-03-01] MEDS ORDERED: lisinopriL 20 MG TAB ONE (09:12)
[2024-03-01] MEDS ORDERED: ATORVASTATIN 20 MG TAB ONE (23:46)
[2024-03-01] MEDS ORDERED: TAMSULOSIN 0.4 MG CAP.ER.24H PO ONE (23:47)
[2024-03-01] MEDS ORDERED: SODIUM CHLORIDE 0.9% 1,000 ML BAG ONE (23:59)
[2024-03-01] MEDS ORDERED: SODIUM CHLORIDE 0.9% 100 ML BAG ONE (23:59)
[2024-03-02] MEDS ORDERED: PIPERACILLIN-TAZOBACTAM 3.375 GM VIAL ONE ×3 (05:28→22:06)
[2024-03-02] MEDS ORDERED: PANTOPRAZOLE 40 MG/10 ML VIAL ONE (08:03)
[2024-03-02] MEDS ORDERED: SODIUM CHLORIDE 0.9% 1,000 ML BAG ONE ×2 (15:00→23:59)
[2024-03-02] MEDS ORDERED: PROPOFOL 10 MG/ML 20 ML VIAL IV ONE (15:37)
[2024-03-02] MEDS ORDERED: ATORVASTATIN 20 MG TAB ONE (22:06)
[2024-03-02] MEDS ORDERED: TAMSULOSIN 0.4 MG CAP.ER.24H PO ONE (22:06)
[2024-03-02] MEDS ORDERED: SODIUM CHLORIDE 0.9% 100 ML BAG ONE (23:59)
[2024-03-03] MEDS ORDERED: PIPERACILLIN-TAZOBACTAM 3.375 GM VIAL ONE (06:23)
[2024-03-03] MEDS ORDERED: PANTOPRAZOLE 40 MG/10 ML VIAL ONE (07:46)
[2024-03-03] MEDS ORDERED: lisinopriL 20 MG TAB ONE (07:46)
[2024-03-03] MEDS ORDERED: LEVOTHYROXINE 88 MCG TAB ONE (09:00)
[2024-03-03] MEDS ORDERED: SODIUM CHLORIDE 0.9% 100 ML BAG ONE (09:00)
--- NOTE | 2024-04-07 16:27 | CT ---
EXAM: CT Abdomen and Pelvis With Intravenous Contrast CLINICAL HISTORY: abdominal pain. TECHNIQUE: Axial computed tomography images of the abdomen and pelvis with intravenous contrast. CTDI is 21.3 mGy and DLP is 1074.5 mGy-cm. This CT exam was performed using one or more of the following dose reduction techniques: automated exposure control, adjustment of the mA and/or kV according to patient size, and/or use of iterative reconstruction technique. COMPARISON: No relevant prior studies available. FINDINGS: Lung bases:Unremarkable. No mass. No consolidation. ABDOMEN: Liver:Hepatic cystic lesions, measuring up to 2.8 cm. Gallbladder and bile ducts:Unremarkable. No calcified stones. No ductal dilation. Pancreas:Unremarkable. No mass. No ductal dilation. Spleen:Unremarkable. No splenomegaly. Adrenals:Unremarkable. No mass. Kidneys and ureters:Unremarkable. No solid mass. No hydronephrosis. Stomach and bowel: Severe wall thickening of the distal transverse and ascending colon with pericolonic fat stranding, consistent with severe colitis. No obstruction. PELVIS: Appendix:No findings to suggest acute appendicitis. Bladder:Unremarkable. No mass. Reproductive:Unremarkable as visualized. ABDOMEN and PELVIS: Intraperitoneal space:Unremarkable. No free air. No significant fluid collection. Bones/joints:No acute fracture. No dislocation. Soft tissues:Unremarkable. Vasculature:Unremarkable. No abdominal aortic aneurysm. Lymph nodes:Unremarkable. No enlarged lymph nodes. IMPRESSION: Severe left-sided colitis. Radiologist: Jared Barragan MD Electronically Signed: 02/27/24 04:31 Study ready at 02:19 and initial results transmitted at 04:31 [facility]
--- NOTE | 2024-04-15 15:07 | CONS ---
CONSULTATION REASON FOR CONSULTATION: Colitis. HISTORY: This is a gentleman, who came to the emergency room with complaints of left lower quadrant pain. The patient was worked up and found to have severe colitis on CAT scan of the left colon. The patient states that he still has some complaints of left lower quadrant pain. PAST MEDICAL HISTORY: Significant for prostate cancer. PHYSICAL EXAMINATION: VITAL SIGNS: Appear stable. ABDOMEN: Soft. Mild tenderness in the left lower quadrant. There is no rebound or guarding. ASSESSMENT: History of colitis and rectal bleeding. The patient is scheduled for colonoscopy on Saturday, 03/02. MMODL / IJN: [id number] /
--- NOTE | 2024-04-15 15:07 | PCN ---
PROCEDURE NOTE PROCEDURE PERFORMED: Colonoscopy. PREOPERATIVE DIAGNOSIS: Colitis. POSTOPERATIVE DIAGNOSIS: Significant colitis of left colon. SURGEON: Dr. Parks. ANESTHESIA: MAC. DESCRIPTION OF PROCEDURE: The patient was placed on the endoscopy table in the lateral position. He received IV sedation. Digital rectal exam was performed. This revealed no abnormalities. The flexible colonoscope was then placed through the anus and passed throughout the colon. There was significant colitis seen in the left colon. The scope was positioned in the transverse colon. Due to the significant colitis, we decided not to proceed. The visualized portion of transverse colon appeared normal. In the descending and sigmoid colon, there were extensive inflammatory changes. This was biopsied with cold forceps. The distal sigmoid appeared normal. The rectum appeared normal. The scope withdrawn from the patient. FINDINGS: Left-sided colitis, pathology pending. MMODL / IJN: [id number] /
== END 2024-03-03 15:00 | disposition home or self-care (01) | DRG 392 ==
LOC: 4SSUR 22:52
PROVIDERS: ADMIT Hospitalist; ATTEND Hospitalist
PROC: 0DBG8ZX Excision of Left Large Intestine, Via Natural or Artificial Opening Endoscopic, Diagnostic (ICD-10-PCS; principal; 2024-03-02 12:30)
DX: K52.9 Noninfective gastroenteritis and colitis, unspecified (principal); I10 Essential (primary) hypertension; Z85.46 Personal history of malignant neoplasm of prostate
CPT/HCPCS: 45380; 74177; 86850; 86900; 86901; 88305; 96361; 96374; 96375; 99285

== ENCOUNTER → 2024-10-01 | Outpatient (CLI) | payer MEDICARE, BC | END | disposition home or self-care (01) | LOC: LABWHC1 14:18 | PROVIDERS: ATTEND Radiology Radiation Oncology | DX: C61 Malignant neoplasm of prostate (principal); Z85.828 Personal history of other malignant neoplasm of skin | CPT/HCPCS: 36415; 84153 ==